=== PATIENT | female | born 1975 | race Caucasian/White ===

== ENCOUNTER 2018-04-30 19:41 | Emergency (ER) | payer SELFPAY | END 2018-04-30 20:00 | disposition left against medical advice (07) | LOC: E/R 19:41 | DX: Z53.21 Procedure and treatment not carried out due to patient leaving prior to being seen by health care provider (principal) ==

== ENCOUNTER 2018-04-30 23:30 | Emergency (ER) | payer MEDICAID | END 2018-05-01 03:27 | disposition home or self-care (01) | LOC: FTE 23:30 | DX: S89.91XA Unspecified injury of right lower leg, initial encounter (principal); S39.012A Strain of muscle, fascia and tendon of lower back, initial encounter; H11.31 Conjunctival hemorrhage, right eye; X58.XXXA Exposure to other specified factors, initial encounter; Y92.9 Unspecified place or not applicable | CPT/HCPCS: 73562; 99283-25 ==

== ENCOUNTER 2018-12-23 08:41 | Emergency (ER) | payer MEDICAID ==
[2018-12-23] MEDS: HYDROCODONE/APAP (5/325) TAB PO (09:04)
== END 2018-12-23 10:33 | disposition home or self-care (01) ==
LOC: FTE 08:41
DX: M25.462 Effusion, left knee (principal)
CPT/HCPCS: 29505; 73562; 99283-25